=== PATIENT | male | born 1990 | race Caucasian/White ===

== ENCOUNTER 2017-06-24 05:53 | Observation (INO) | payer OTHER ==
[~2017-06-24] VITALS: Ht 182.9 cm; Wt 62.8 kg
[~2017-06-24 05:53] MED LIST: ATARAX,VISTARIL50 MG PO; CLONIDINE HCL0.1 MG PO; TRAZODONE HCL50 MG PO; ULTRAM50 MG PO; VISTARIL25 MG PO; ZOFRAN ODT4 MG PO; ZOFRAN4 MG PO
[2017-06-24 06:28] LABS: EOSINOPHIL (%) 0.3 % (0-5); HEMATOCRIT 43.1 % (38.0-50.0); IMMATURE GRANULOCYTE (%) 0.3 % (0.0-0.7); INSTRUMENT ABS NEUTROPHIL CT 5.4 K/uL; LYMPHOCYTE COUNT 2.8 K/uL (1.0-2.8); MCH 29.2 PG (29.0-34.0); MCHC 33.6 G/DL (30.0-36.0); MCV 86.9 FL (86-99); MEAN PLAT.VOLUME 9.1 uM^3 (9.0-12.4); MONOCYTE (%) 7.1 % (3-12); MONOCYTE COUNT 0.6 K/uL (0-0.8); NEUTROPHIL (%) 61.1 % (45-76); NEUTROPHIL COUNT 5.4 K/uL (1.8-6.4); PLATELET COUNT 321 K/uL (156-360); RBC DIS.WIDTH-CV 12.2 % (11.8-14.6); RBC DIS.WIDTH-SD 38.8 % (39-53); RED BLOOD COUNT 4.96 M/uL (4.00-5.50); WHITE BLOOD COUNT 8.9 K/uL (4.1-10.2)
[2017-06-24 06:38] LABS: CHLORIDE 104 mEq/L (99-109); POTASSIUM 3.8 mEq/L (3.7-5.4); SODIUM 139 mEq/L (136-147)
[2017-06-24 06:40] LABS: GLUCOSE 111 mg/dL (70-99)
[2017-06-24 06:42] LABS: ANION GAP 8 MEQ/L (2-14)
[2017-06-24 06:44] LABS: GFR ESTIMATE (CALCULATED) > 59 mL/min/
[2017-06-24 06:45] LABS: UREA NITROGEN (BUN) 12 mg/dL (9-23)
[2017-06-24 07:45] LABS: ADD MEDTOX COMMENT Y; AMPHETAMINE NEGATIVE (500 ng/mL); BARBITURATES NEGATIVE (200 ng/mL); BENZODIAZEPINES PRESUMPTIVE POSITIVE (150 ng/mL); COCAINE NEGATIVE (150 ng/mL); INTERNAL CONTROLS VALID? YES; METHADONE NEGATIVE (200 ng/mL); METHAMPHETAMINE NEGATIVE (500 ng/mL); OPIATES (MORPHINE) NEGATIVE (100 ng/mL); OXYCODONE NEGATIVE (100 ng/mL); PHENCYCLIDINE NEGATIVE (25 ng/mL); PROPOXYPHENE NEGATIVE (300 ng/mL); THC CANNABINOIDS NEGATIVE (50 ng/mL); TRICYCLIC ANTIDEPRESSANTS NEGATIVE (300 ng/mL)
[2017-06-24 08:23] LABS: BENZODIAZEPINES, URINE SCREEN POSITIVE (200 ng/mL)
[2017-06-24] MEDS ORDERED: LIBRIUM25 MG PO (08:44)
[2017-06-24] MEDS ORDERED: TYLENOL REGULA325 MG PO (08:44)
[2017-06-24 16:00] VITALS: BP 125/90
[2017-06-24 22:37] VITALS: BP 117/80
[2017-06-24 22:43] LABS: POINT-OF-CARE METER ID UU13113700
[2017-06-25 00:46] LABS: CHLORIDE 109 mEq/L (99-109); SODIUM 139 mEq/L (136-147)
[2017-06-25 00:47] LABS: MAGNESIUM 2.3 mg/dL (1.3-2.7)
[2017-06-25 00:49] LABS: GLUCOSE 87 mg/dL (70-99)
[2017-06-25 00:50] LABS: ANION GAP 9 MEQ/L (2-14)
[2017-06-25 00:51] LABS: TOTAL BILIRUBIN 0.8 mg/dL (0.0-1.0)
[2017-06-25 00:52] LABS: ALKALINE PHOSPHATASE 72 IU/L (3-129)
[2017-06-25 00:53] LABS: GFR ESTIMATE (CALCULATED) > 59 mL/min/
[2017-06-25 00:54] LABS: UREA NITROGEN (BUN) 16 mg/dL (9-23)
[2017-06-25 00:56] LABS: CREATINE KINASE 127 IU/L (1-294); TOTAL CK 127 IU/L (1-294)
[2017-06-25 01:01] LABS: CK-MB 1.1 ng/mL (0.0-4.9)
[2017-06-25 01:03] LABS: POTASSIUM 4.8 mEq/L (3.7-5.4)
[2017-06-25 03:37] VITALS: BP 118/73
[2017-06-25 07:58] VITALS: BP 124/63
[2017-06-25 11:54] VITALS: BP 131/72
[2017-06-25 12:07] LABS: PROLACTIN 17.1 NG/ML
[2017-06-25] MEDS ORDERED: NICOTINE PATCH1 EAC2 TD (16:15)
[2017-06-25] MEDS ORDERED: QUETIAPINE FUM100 MG PO (16:16)
== END 2017-06-25 17:10 ==
LOC: EME → EDBD 05:53 → EDOF 08:38 → ENRESERV 08:45 → 5WEST 15:47 → ENRESERV 22:22 → 4EAST 22:29 → 5WEST 22:29 → 4EAST 22:36
PROVIDERS: Emergency Medicine; Hospitalist; Internal Medicine
DX: R56.9 Unspecified convulsions (principal); G93.9 Disorder of brain, unspecified; F11.23 Opioid dependence with withdrawal; F19.24 Other psychoactive substance dependence with psychoactive substance-induced mood disorder; F31.9 Bipolar disorder, unspecified; Z23 Encounter for immunization; I10 Essential (primary) hypertension; F41.0 Panic disorder [episodic paroxysmal anxiety]; F10.239 Alcohol dependence with withdrawal, unspecified; F15.10 Other stimulant abuse, uncomplicated; F13.10 Sedative, hypnotic or anxiolytic abuse, uncomplicated; R51 Headache; F17.210 Nicotine dependence, cigarettes, uncomplicated
CPT/HCPCS: 70450; 70551; 80048; 80053; 82550; 82553; 82948; 83735; 84100; 84146; 84999; 85025; 90686; 95819; 99281; 99285; G0378; J1953; J2060; J2250; J2270; J7030; J7050